=== PATIENT | female | born 1990 | race Caucasian/White ===

== ENCOUNTER 2021-07-30 23:09 | Inpatient (IN) | payer BC, OTHER ==
[2021-07-30 23:20] VITALS: BMI 32.8
[2021-07-31] MEDS ORDERED: ONDANSETRON *ODT* 4 MG TABLET SL ONE (01:04)
[2021-07-31] MEDS ORDERED: ACETAMINOPHEN 500 MG TABLET (FP) PO ONE (01:16)
[2021-07-31] MEDS ORDERED: ONDANSETRON *ODT* 4 MG TABLET ONE (01:47)
[2021-07-31] MEDS ORDERED: ACETAMINOPHEN 325 MG TABLET (FP) ONE (01:47)
[2021-07-31 02:33] LABS: BASO % 0.2 % (0-2.0); EOS % 0.1 % (0-4.5); HEMATOCRIT 33.7 % (32.4-45.2); HEMOGLOBIN 11.3 GM/dL (10.7-15.3); MCH 29.7 pg (25.7-33.7); MCHC 33.5 g/dl (32.0-36.0); MEAN CELL VOLUME 88.6 fl (80-96); MEAN PLT VOLUME 8.4 fl (7.5-11.1); MONO % 5.5 % (3.8-10.2); NEUT % 89.2 % (42.8-82.8); PLATELET COUNT 257 10^3/uL (134-434); RBC 3.81 M/mm3 (3.60-5.2); RDW 13.6 % (11.6-15.6)
[2021-07-31 02:37] LABS: EPI CELLS 2 /uL (0-25.1); HYALINE CASTS 1 /uL (0-3.1); PH,URINE 6.5 (5.0-8.0); URINE APPEARANCE CLEAR; URINE BILIRUBIN NEGATIVE (NEGATIVE); URINE COLOR DK YELLOW; URINE GLUCOSE (UA) NEGATIVE (NEGATIVE); URINE KETONE NEGATIVE (NEGATIVE); URINE LEUK ESTERASE 1+ (NEGATIVE); URINE NITRITE POSITIVE (NEGATIVE); URINE PROTEIN TRACE (NEGATIVE); URINE RBC 24 /uL (0-23.9); URINE WBC 110 /uL (0-25.8)
[2021-07-31 02:39] LABS: HCG,QUALITATIVE URINE Negative
[2021-07-31 02:41] LABS: BLOOD UREA NITROGEN 5.7 mg/dL (7-18)
[2021-07-31 02:45] LABS: CREATININE 1.1 mg/dL (0.55-1.3)
[2021-07-31 02:46] LABS: BILIRUBIN,TOTAL 0.9 mg/dL (0.2-1); TOT PROT 7.3 g/dl (6.4-8.2)
[2021-07-31] MEDS ORDERED: KETOROLAC TROMETHAMINE 30 MG/1 ML VIAL IVPUSH ONE (02:50)
[2021-07-31] MEDS ORDERED: PIPERACILLIN/TAZOB 4.5 GM 4.5 GM in DEXTROSE 5%-WATER 100 ML IVPB ONE (03:29)
[2021-07-31] MEDS ORDERED: KETOROLAC TROMETHAMINE 30 MG/1 ML VIAL ONE (03:40)
[2021-07-31] MEDS ORDERED: PIPERACILLIN/TAZOB 4.5 GM 4.5 GM/100 ML BAG IVPB ONE (03:41)
[2021-07-31] MEDS ORDERED: ALBUTEROL SO4 HFA INHALER IH PRN (07:40)
[2021-07-31] MEDS: SODIUM CHLORIDE 1,000 ML IV SCH (08:30)
[2021-07-31] MEDS ORDERED: PIPERACILLIN/TAZOB 3.375 GM 3.375 GM/50 ML BAG IVPB ONE (08:54)
[2021-07-31] MEDS ORDERED: ENOXAPARIN NA (PORCINE) 40 MG/0.4 ML DISP.SYRIN SQ ONE (08:54)
[2021-07-31] MEDS ORDERED: FAMOTIDINE 20 MG TABLET ONE (08:54)
[2021-07-31] MEDS: FAMOTIDINE 40 MG TABLET PO SCH (09:17)
[2021-07-31] MEDS: ENOXAPARIN NA (PORCINE) 40 MG/0.4 ML DISP.SYRIN SQ SCH (09:17)
[2021-07-31] MEDS: LEVOTHYROXINE NA 150 MCG TABLET PO SCH (09:44)
[2021-07-31] MEDS ORDERED: PIPERACILLIN/TAZOB 3.375 GM 3.375 GM in DEXTROSE 5%-WATER - 50 ML IVPB SCH (10:00)
[2021-07-31] MEDS: BUDESONIDE/FORMETEROL FUMARATE 80/4.5 mcg INHALER IH SCH ×2 (11:48→21:22)
[2021-07-31] MEDS ORDERED: ONDANSETRON 4 MG/2 ML VIAL IVPUSH PRN (12:34)
[2021-07-31 12:41] LABS: HEMATOCRIT 30.5 % (32.4-45.2); HEMOGLOBIN 10.1 GM/dL (10.7-15.3); MCH 29.9 pg (25.7-33.7); MCHC 33.1 g/dl (32.0-36.0); MEAN CELL VOLUME 90.2 fl (80-96); MEAN PLT VOLUME 8.7 fl (7.5-11.1); PLATELET COUNT 220 10^3/uL (134-434); RBC 3.38 M/mm3 (3.60-5.2); RDW 13.6 % (11.6-15.6); WHITE BLOOD COUNT 10.6 K/mm3 (4.0-10.0)
[2021-07-31 13:00] LABS: CALCIUM 8.4 mg/dL (8.5-10.1)
[2021-07-31 13:01] LABS: ALBUMIN 3.4 g/dl (3.4-5.0)
[2021-07-31 13:04] LABS: CREATININE 1.2 mg/dL (0.55-1.3)
[2021-07-31 13:05] LABS: BILIRUBIN,TOTAL 1.3 mg/dL (0.2-1); TOT PROT 6.5 g/dl (6.4-8.2)
[2021-07-31] MEDS: ACETAMINOPHEN 1000 MG/100 ML BAG IVPB PRN ×2 (13:43→20:41)
[2021-07-31] MEDS ORDERED: NAPH,MB-DB/K PH,MBDB POWDER PACKET PO ONE (14:19)
[2021-07-31] MEDS ORDERED: PIPERACILLIN/TAZOBACTAM 3.375 GM VIAL IVPB ONE (17:01)
[2021-07-31] MEDS ORDERED: DEXTROSE 5%-WATER - 50 ML IVPB ONE (17:01)
[2021-07-31] MEDS: PIPERACILLIN/TAZOB 3.375 GM 3.375 GM in DEXTROSE 5%-WATER - 50 ML IVPB SCH (18:08)
[2021-07-31] MEDS: MONTELUKAST NA 10 MG TABLET PO SCH (21:22)
[2021-08-01] MEDS ORDERED: PIPERACILLIN/TAZOBACTAM 3.375 GM VIAL IVPB ONE ×3 (00:23→16:39)
[2021-08-01] MEDS ORDERED: DEXTROSE 5%-WATER - 50 ML IVPB ONE ×3 (00:23→16:39)
[2021-08-01] MEDS: SODIUM CHLORIDE 1,000 ML IV SCH ×2 (01:43→09:39)
[2021-08-01] MEDS: PIPERACILLIN/TAZOB 3.375 GM 3.375 GM in DEXTROSE 5%-WATER - 50 ML IVPB SCH ×3 (01:43→17:16)
[2021-08-01] MEDS: ACETAMINOPHEN 1000 MG/100 ML BAG IVPB PRN ×2 (03:30→12:16)
[2021-08-01] MEDS: LEVOTHYROXINE NA 150 MCG TABLET PO SCH (06:06)
[2021-08-01 09:02] LABS: BASO % 0.2 % (0-2.0); EOS % 0.2 % (0-4.5); HEMATOCRIT 30.2 % (32.4-45.2); HEMOGLOBIN 9.9 GM/dL (10.7-15.3); LYMPH % 13.9 % (8-40); MCHC 32.9 g/dl (32.0-36.0); MEAN CELL VOLUME 91.4 fl (80-96); MEAN PLT VOLUME 9.1 fl (7.5-11.1); MONO % 11.7 % (3.8-10.2); PLATELET COUNT 218 10^3/uL (134-434); RBC 3.31 M/mm3 (3.60-5.2); RDW 13.8 % (11.6-15.6); WHITE BLOOD COUNT 9.1 K/mm3 (4.0-10.0)
[2021-08-01 09:25] LABS: CALCIUM 8.3 mg/dL (8.5-10.1)
[2021-08-01 09:26] LABS: BLOOD UREA NITROGEN 5.9 mg/dL (7-18)
[2021-08-01 09:28] LABS: CREATININE 0.9 mg/dL (0.55-1.3); PHOSPHOROUS 2.8 mg/dL (2.5-4.9)
[2021-08-01] MEDS: ENOXAPARIN NA (PORCINE) 40 MG/0.4 ML DISP.SYRIN SQ SCH (09:38)
[2021-08-01] MEDS: BUDESONIDE/FORMETEROL FUMARATE 80/4.5 mcg INHALER IH SCH ×2 (09:40→22:12)
[2021-08-01] MEDS: FAMOTIDINE 40 MG TABLET PO SCH (17:16)
[2021-08-01] MEDS: MONTELUKAST NA 10 MG TABLET PO SCH (22:12)
[2021-08-01] MEDS ORDERED: ACETAMINOPHEN 1000 MG/100 ML BAG IVPB ONE (23:05)
[2021-08-02] MEDS ORDERED: DEXTROSE 5%-WATER - 50 ML IVPB ONE ×2 (00:15→09:09)
[2021-08-02] MEDS ORDERED: PIPERACILLIN/TAZOBACTAM 3.375 GM VIAL IVPB ONE ×2 (00:15→09:09)
[2021-08-02] MEDS: PIPERACILLIN/TAZOB 3.375 GM 3.375 GM in DEXTROSE 5%-WATER - 50 ML IVPB SCH ×2 (01:11→09:20)
[2021-08-02 05:31] VITALS: TEMP 98.7
[2021-08-02] MEDS: LEVOTHYROXINE NA 150 MCG TABLET PO SCH (06:27)
[2021-08-02] MEDS: ENOXAPARIN NA (PORCINE) 40 MG/0.4 ML DISP.SYRIN SQ SCH ×2 (09:18→09:20)
[2021-08-02] MEDS: SODIUM CHLORIDE 1,000 ML IV SCH (09:18)
[2021-08-02] MEDS: BUDESONIDE/FORMETEROL FUMARATE 80/4.5 mcg INHALER IH SCH (09:19)
[2021-08-02] MEDS: FAMOTIDINE 40 MG TABLET PO SCH (09:19)
[2021-08-02] MEDS: ACETAMINOPHEN 325 MG TABLET (FP) PO SCH ×2 (11:15→14:15)
[2021-08-02 12:56] VITALS: BP 138/83; PULSE 91
[2021-08-02] MEDS ORDERED: CEFUROXIME AXETIL 500 MG TABLET PO SCH (13:00)
== END 2021-08-02 15:00 | disposition home or self-care (01) | DRG 690 ==
LOC: JER 23:09 → JERBED 07-31 03:29 → J7W 07-31 10:43
PROVIDERS: ADMIT Hospitalist; ATTEND Internal Medicine
DX: N39.0 Urinary tract infection, site not specified (principal); E03.9 Hypothyroidism, unspecified; K21.9 Gastro-esophageal reflux disease without esophagitis; Z86.16 Personal history of COVID-19; B96.20 Unspecified Escherichia coli [E. coli] as the cause of diseases classified elsewhere; D72.829 Elevated white blood cell count, unspecified
CPT/HCPCS: 36415; 74176-TC; 80048; 80053; 81003; 83735; 84100; 84443; 84703; 85025; 85027; 87040; 87086; 87186; 93005; 93010; 99285-25; C9803; J0131; Q0162; U0003; U0005

== ENCOUNTER 2023-08-18 03:01 | Emergency (ER) | payer BC, OTHER ==
[2023-08-18 03:12] VITALS: BP 131/92; PULSE 100; RESP 17; TEMP 98.9; BMI 36.8
[2023-08-18] MEDS: ALBUTEROL SO4 2.5/IPRATROPIUM 0.5 INH SOL 3 ML VIAL.NEB. NEB SCH (03:50)
[2023-08-18] MEDS ORDERED: ACETAMINOPHEN 325 MG TABLET (FP) ONE (04:00)
[2023-08-18] MEDS ORDERED: DEXAMETHASONE SOD PHOSPHATE 10 MG/1 ML VIAL ONE (04:00)
[2023-08-18] MEDS ORDERED: ALBUTEROL SO4 2.5/IPRATROPIUM 0.5 INH SOL 3 ML VIAL.NEB. NEB ONE (04:09)
[2023-08-18] MEDS: ACETAMINOPHEN 500 MG TABLET (FP) PO ONE (04:20)
[2023-08-18] MEDS: DEXAMETHASONE SOD PHOSPHATE 10 MG/1 ML VIAL IM ONE (04:20)
[2023-08-18] MEDS ORDERED: ALBUTEROL SO4 HFA INHALER IH ONE (05:05)
[2023-08-18] MEDS ORDERED: AZITHROMYCIN 500 MG TABLET ONE (05:05)
[2023-08-18] MEDS: AZITHROMYCIN 250 MG TABLET PO ONE (05:10)
[2023-08-18] MEDS: ALBUTEROL SO4 HFA INHALER IH ONE (05:10)
== END 2023-08-18 05:13 | disposition home or self-care (01) ==
LOC: JER 03:01
PROC: 3E023GC Introduction of Other Therapeutic Substance into Muscle, Percutaneous Approach (ICD-10-PCS; principal; 2023-08-18)
PROC: 3E0F7GC Introduction of Other Therapeutic Substance into Respiratory Tract, Via Natural or Artificial Opening (ICD-10-PCS; 2023-08-18)
PROC: 3E0F7GC Introduction of Other Therapeutic Substance into Respiratory Tract, Via Natural or Artificial Opening (ICD-10-PCS; 2023-08-18)
DX: J40 Bronchitis, not specified as acute or chronic (principal); J10.1 Influenza due to other identified influenza virus with other respiratory manifestations; B34.9 Viral infection, unspecified; R05.9 Cough, unspecified; R06.02 Shortness of breath; R50.9 Fever, unspecified; Z20.822 Contact with and (suspected) exposure to COVID-19
CPT/HCPCS: 0241U-QW; 99284-25; J1100